=== PATIENT | female | born 1965 | race Hispanic/Latino ===

== ENCOUNTER 2018-02-08 06:15 | Day surgery (SDC) | payer OTHER ==
[2018-02-03 14:01] VITALS: BMI 21.4
--- NOTE | 2018-02-08 07:26 | CP.PCM.PN ---
Subjective - Date & Time of Evaluation Date of Evaluation: 02/08/18 Time of Evaluation: 07:25 - Subjective Subjective: 52 y/o female with no significant PMHx seen in SDS prior to left ankle surgery. Pt confirms NPO status after midnight last night. States she has felt a looseness in her ankle for a while now and was diagnosed with Louis Danlos syndrome. States her pain is well managed. Has no further questions regarding her surgery. Denies F/C/N/V/CP/SOB Objective - Vital Signs/Intake and Output Vital Signs (last 24 hours): Temp Pulse Resp BP Pulse Ox 98.1 F 59 L 18 103/61 100 02/08/18 07:14 02/08/18 07:18 02/08/18 07:14 02/08/18 07:14 02/08/18 07:14 - Constitutional Appears: Well, Non-toxic, No Acute Distress - Extremities Exam Additional comments: Increase in ankle circumdoctory ROM noted Tenderness elicited upon active and passive STJ eversion - Neurological Exam Neurological Exam: Alert, Awake, Oriented x3 - Psychiatric Exam Psychiatric exam: Normal Affect, Normal Mood Assessment and Plan - Assessment and Plan (Free Text) Assessment: 52F in SDS with left ankle instability and peroneal tendinitis, for OR today with Dr. Holder for repair of peroneal tendon, peroneal groove deepening and repair of lateral ankle instability Plan: Pt was seen and examined in SDS Pt NPO status was confirmed All pre-op testing and clearance in chart Pt has exhausted all conservative treatment at this time and is opting for surgical intervention Pt was explained procedure and post-operative course All pt's questions were answered to satisfaction No guarantees were made Pt understands all risks, benefits and complications of procedure Pt will follow-up with Dr. Holder within 1 week of surgery
--- NOTE | 2018-02-08 07:27 | CP.SDSHP ---
Same Day Surgery H & P - History Proposed Procedure: left ankle peroneal groove deepening, repair of peroneal tendon, lateral ankle stabilization Pre-Op Diagnosis: left lateral ankle instability, peroneal tendinitis - Previous Medical/Surgical History Pain: 4.Moderate Pain - Allergies Allergies: Allergies No Known Allergies Allergy (Unverified 02/08/18 06:38) - Physical Exam General Appearance: well nourished, NAD Vital Signs: Vital Signs 02/08/18 02/08/18 07:14 07:18 Temperature 98.1 F Pulse Rate 59 L 59 L Respiratory 18 Rate Blood Pressure 103/61 O2 Sat by Pulse 100 Oximetry Mental Status: Alert & Oriented x3 - {Optional Preform as Required} Ortho: Other (pain and laxity on ankle joint active and passive ROM, LLE) - Impression Impression: Pt was seen and examined in SDS. Pt NPO status was confirmed. All pre-op testing and clearance in chart. Pt has exhausted all conservative treatment at this time and is opting for surgical intervention. Pt was explained procedure and post-operative course. All pt's questions were answered to satisfaction. No guarantees were made. Pt understands all risks, benefits and complications of procedure. Pt will follow-up with Dr. Holder within 1 week of surgery - Date & Time Date: 02/08/18 Time: 14:38 Short Stay Discharge - Short Stay Discharge Admitting Diagnosis/Reason for Visit: M76.21,[id number] Disposition: HOME/ ROUTINE Referrals: Kimi Yang MD [Primary Care Provider] - Instructions: Ibuprofen, How to Use Crutches Additional Instructions (Diet, Activity): -Patient in good/stable condition for discharge home -Pt to resume medications per medical reconciliation -Resume regular diet Please keep dressing clean, dry, & intact to surgical site -Use plastic bag over bandage for showering -Wear post op shoe at all times when ambulating -Call clinic if you see signs of infection (redness, swelling, malodor) -Please make an appointment to see Dr. Holder in office/clinic within 1 week for post-op check Progress Note/Discharge Note with Instructions: - Patient evaluated bedside in recovery s/p surgical procedure. - After surgical procedure patient in NAD - (+) Void, (+) Appetite - Capillary refill time <3s and NVSI intact. - Patient denies complaints at this time - Post operative instructions and plan of care explained to patient at length. - Pt. acknowledges understanding. - Patient stable for DC per podiatric surgery
[2018-02-08] MEDS ORDERED: Lactated Ringer's 1,000 ML IV ONE (07:30)
[2018-02-08] MEDS ORDERED: Lidocaine Hydrochloride 1% 0 ML ONE (07:33)
[2018-02-08] MEDS ORDERED: Bupivacaine 0.5% Inj(30mL) ONE (07:33)
[2018-02-08 07:34] LABS: PROTHROMBIN TIME 10.7 Seconds (9.8-13.1)
[2018-02-08 07:35] LABS: PARTIAL THROMBOPLASTIN TIME 31.5 Seconds (25.6-37.1)
[2018-02-08] MEDS ORDERED: Propofol 10 mg/ml Inj (20 ML) ONE (07:39)
[2018-02-08] MEDS ORDERED: Midazolam 2 MG/2 ML VIAL ONE (07:39)
[2018-02-08] MEDS ORDERED: Lactated Ringer's 500 ML IV ONE (10:00)
[2018-02-08] MEDS ORDERED: Oxycodone/Acetaminophen 5/325 mg Tab PO PRN ×2 (10:01)
--- NOTE | 2018-02-08 10:01 | PCM.SURG1 ---
Surgeon's Initial Post Op Note - Surgeon's Notes Surgeon: Dr. Holder Bookbinder Chief: Jesse Naranjo, PGY-3; Kobi, PGY-2; Lon Naranjo, PGY-1 Type of Anesthesia: General LMA, Block Regional (Popliteal block) Anesthesia Administered By: Dr. Noel Pre-Operative Diagnosis: Left ankle- peroneal tendon subluxation; lateral ankle instability Operative Findings: See dictation. Hemostasis: PTT at 350mmHg. Materials: Arthrex mini suture taks x 3; Arthrex mini Pushlocks x2; 3-0, 4-0 vicryl; 4-0 prolene; xeroform, DSD, posterior splint, RADHA bandage. Injectables: None Post-Operative Diagnosis: Same as above Operation Performed: Left ankle- peroneal tendon groove deepening of the fibula ; lateral ankle stabilization using implant Specimen/Specimens Removed: None Estimated Blood Loss: EBL {In ML}: 5 Blood Products Given: N/A Drains Used: No Drains Post-Op Condition: Good Date of Surgery/Procedure: 02/08/18 Time of Surgery/Procedure: 07:45
[2018-02-08] MEDS ORDERED: Lactated Ringer's 1,000 ML IV SCH (10:30)
--- NOTE | 2018-02-08 11:37 | CARD ---
APPROVED REPORT EKG Measurement Heart [id number] <Conclusion> Sinus bradycardia Otherwise normal ECG
[2018-02-08 11:50] VITALS: RESP 18
[2018-02-08] MEDS ORDERED: Oxycodone/Acetaminophen 5/325 mg Tab PO ONE (15:20)
[2018-02-08 16:13] VITALS: BP 100/60; PULSE 70; TEMP 98; O2SAT 98
--- NOTE | 2018-02-11 14:59 | PCM.OP ---
Operative Report - Operative Report Date of Surgery/Procedure: 02/08/18 Time of Surgery/Procedure: 08:00 Surgeon: Lanre Holder DPM Tax Assessor: Cory Naranjo DPM PGY-3; Tylor Peace DPM PGY-2; Mike Naranjo DPM PGY-1 Anesthesia/Sedation: General LMA with regional (popliteal) block Pre-Operative Diagnosis: Left ankle- peronteal tendon subluxation secondary to shallow fibular peroneal groove; Left ankle- lateral ankle instability Post-Operative Diagnosis: Same as above Indication for Surgery: The patient is a 52 year-old female with the above diagnoses. She has exhausted conservative treatment at this time and now requests surgical intervention. The patient signed the consent after careful explanation of risks, benefits, complication and alternatives for surgical procedure. No guarantees were given nor implied. The patient received 2g of IV Ancef prior to the procedure. The patients NPO status was confirmed prior to taking the patient to the OR. Operative Findings: See below. Preparation: The patient was brought to the operating room and placed on the operating room table in supine position. Timeout was performed for identification of the correct patient and procedure. Once general anesthesia was achieved, a well-padded pneumatic thigh tourniquet was applied to the patients Left thigh. A bump was placed under the ipsilateral hip in order to internally rotate the Left leg for better visualization of the operative site. The Left lower extremity was then prepped and draped in usual sterile manner. Esmarch was utilized to exsanguinate the patients Left lower extremity. Pneumatic thigh tourniquet was then inflated to 350mmHg and the procedure began. Procedure/Operation Description: Procedure #1: Left ankle- peroneal groove deepening of the fibulaAttention was directed to the lateral aspect of the patients ankle. Prior to making the incision, subluxation of the peroneal tendons was observed upon ankle range of motion, secondary to a shallow fibular peroneal groove. Using a skin marker, the tip of the lateral malleolus was marked along with a point 1cm distal to the tip of the lateral malleolus. A #15 blade was now used to make a J-shaped incision at the lateral aspect of the ankle starting just posterior to the posterior fibula. The incision was deepened through the subcutaneous tissues using sharp and blunt dissection. Care was taken to identify and retract all vital neurovascular structures. All bleeders were cauterized and ligated as necessary. Dissection was now bluntly continued down to the level of the fibular periosteum, superior peroneal retinaculum and the peroneal tendon sheath. Using a fresh #15 blade, a perisosteal incision was created at the posterior margin of fibula and extended distally in a curved manner for later primary ligament repair. The periosteal tissues were gently reflected off the posterior border of the fibula proximally and off of the anterior and lateral margin of the lateral malleolus distally. The peroneal tendons were now identified and they were observed for any longitudinal split tears and none were noted. The peroneal tendons were now gently retracted posteriorly to keep them away from the operative site. At this time, the posterior aspect of the fibula was palpated and it was noted that a groove for the peroneal tendons was completely absent. Next, a guide wire from the Synthes 2.4mm cannulated screw set was now obtained and using intraoperative fluoroscopy, the guide wire was driven up the fibular shaft. Multiple AP and lateral images were taken to verify appropriate depth and placement of the wire. The 2.5 cannulated drill was now used to drill over the guide wire. Next, the Synthes 3.5 cannulated drill was used to drill over the guidewire to widen the original drill hole. Once this was complete, the guide wire was now removed. A bone tamp was now obtained and placed over the posterior aspect of the fibula parallel to its longitudinal axis. A mallet was then used on the bone tamp to help collapse the posterior cortex of the fibula both proximally and distally to create a groove for the peroneal tendons to rest against. Once this was complete, the posterior aspect of the distal fibula was once again palpated and a prominent groove was now appreciated. The surgical site was now irrigated with a copious amount of sterile normal saline. Bone wax was then placed over the newly created groove to prevent any osteophyte formation. Procedure #2: Left ankle- lateral ankle stabilization using Arthrex mini SutureTaks and PushLocksAttention was now directed to the distal anterior aspect of the lateral malleolus. Any remaning soft tissue attachments were then carefully reflected. Next, using the Enevo 1.8mm drill, 3 drill holes were made along the distal anterior aspect of the lateral malleolus for insertion of 3 Arthrex mini SutureTaks. The 3 SutureTaks anchors were then inserted one by one. Once anchored into the bone, the fiberwire from each anchor was fed through the remnants of the anterior talofibular ligament and lateral joint capsule complex in a weaving manner. This was repeated for a total of 3 times for all 3 anchors. Next, two drill holes were made within the lateral malleolus approximately 1cm proximal to the SutureTak anchor sites. Using the Arthrex PushLock system, 3 of the 6 fiberwire strands from each SutureTak was fed through a PushLock system. Next, the PushLock anchor was now driven through one of the previously drilled holes. This was repeated again for the remainder of the 3 fiberwire strands. While the PushLock anchors were being inserted, care was taken to dorsiflex and suellen the foot. This successfully completed the lateral ankle stabilization. Less instability and less eversion of the ankle was noted after this repair. The surgical site was now irrigated with a copious amount of sterile normal saline. Deep tissue closure was performed with 3-0 vicryl. The subcutaneous tissues were then reapproximated and coapted with 4-0 vicryl. The skin was then reapproximated and coapted using 4-0 prolene via an interrupted simple suture technique. The surgical site was then dressed with xeroform, 4x4 gauze, ABD pad and kerlix. A well-padded posterior splint was now applied to the LLE while ensuring to maintain the ankle to 90 degrees of dorsiflexion. The attending, Dr. Holder, was present throughout the entire case. Estimated Blood Loss: <5cc Complications: None Discharge & Condition: Postoperative Condition: The patient tolerated the anesthesia and procedure well with no complications. The patient was escorted to the recovery room with vital signs stable and neurovascular status intact to the Left lower extremity. She was instructed to remain NWB to the LLE with crutches. This patient is to follow-up with Dr. Holder at his office on an outpatient basis.
== END 2018-02-08 16:30 | disposition home or self-care (01) ==
LOC: H.OPSURG 06:15
PROVIDERS: ATTEND Podiatrist Foot & Ankle Surgery
DX: M25.372 Other instability, left ankle (principal); Q79.6 Ehlers-Danlos syndromes
CPT/HCPCS: 27700; 36415; 85610; 85730; 93005; 97116; 97161; 97530; C1769; G8978; G8979; G8980; J0690; J1885; J2001; J2250; J2704; J3010; J7030; J7120